=== PATIENT | male | born 1970 | race Two or more races ===

== ENCOUNTER 2024-01-03 15:39 | Emergency (ER) | payer MEDICAID, OTHER ==
[~2024-01-03] VITALS: Ht 157.5 cm; Wt 75.0 kg
[2024-01-03] MEDS: IPRATROPIUM/ALBUTEROL 0.5-3(2.5)MG/3ML NEB HHN ONE ×2 (17:15→17:56)
[2024-01-03 17:17] VITALS: PULSE 84; RESP 18; O2SAT 98
[2024-01-03] MEDS: PREDNISONE 20MG TABLET PO ONE (17:36)
[2024-01-03] MEDS: DEXAMETHASONE 2MG TABLET PO ONE (17:36)
[2024-01-03] MEDS ORDERED: P20 MT (17:59)
[2024-01-03] MEDS ORDERED: ALBU6.7H15 INH (17:59)
[2024-01-03 18:38] VITALS: BP 149/76; PULSE 79; RESP 14; TEMP 36.50292; O2SAT 99
== END 2024-01-03 18:41 | disposition home or self-care (01) ==
LOC: ER 15:39
DX: J45.901 Unspecified asthma with (acute) exacerbation (principal)
CPT/HCPCS: 71045; 94640; 99283; J8540; J7512; Z7610 ×3